=== PATIENT | female | born 1985 | race Two or more races ===

== ENCOUNTER 2020-03-31 22:24 | Emergency (ER) | payer OTHER ==
[~2020-03-31] VITALS: Ht 165.1 cm; Wt 72.6 kg
[2020-03-31 23:29] LABS: Basophils # (auto) 0.1 10 ^3/uL (0-0.2); Basophils % (auto) 0.6 % (0.0-2.0); Eosinophils # (auto) 0.2 10 ^3/uL (0-0.8); Eosinophils % (auto) 2.2 % (0.0-7.0); Hematocrit 38.8 % (36.0-46.0); Hemoglobin 13.4 g/dL (12.2-16.2); Lymphocytes # (auto) 2.3 10 ^3/uL (0.4-5.4); Lymphocytes % (auto) 23.8 % (10.0-50.0); Mean Corpuscular Hemoglobin 30.5 pg (28.0-32.0); Mean Corpuscular Hgb Conc. 34.6 g/dL (32.0-36.0); Mean Corpuscular Volume 88.3 fL (80.0-100.0); Monocytes # (auto) 0.5 10 ^3/uL (0-1.3); Monocytes % (auto) 5.4 % (0.0-12.0); Neutrophils # (auto) 6.5 10 ^3/uL (1.6-8.6); Platelet Count (auto) 269 10^3/uL (140-450); White Blood Cell 9.5 10^3/uL (4.4-10.8)
[2020-03-31 23:46] LABS: INR 0.97 (0.9-1.15); Partial Thromboplastin Time 27.3 sec (23.0-31.2)
[2020-03-31 23:48] LABS: Albumin 3.4 g/dL (3.4-5.0); Calcium 8.9 mg/dL (8.5-10.1); Potassium 3.4 mmol/L (3.5-5.1)
[2020-03-31 23:50] LABS: BUN/Creatinine Ratio 11.3
[2020-03-31 23:53] LABS: Bilirubin, Total 0.3 mg/dL (0.2-1.0); Total Protein 7.5 g/dL (6.4-8.2)
[2020-04-01 02:51] LABS: Urine Bacteria FEW /hpf (None Seen); Urine Blood 3+ /uL (Negative); Urine Mucus FEW (None Seen); Urine Specific Gravity 1.025 (1.001-1.035); Urine WBC 7 /hpf (0 - 5)
[2020-04-01 03:00] VITALS: BP 112/64
== END 2020-04-01 04:54 | disposition home or self-care (01) ==
LOC: EDBD 22:27 → ER 22:27
DX: O20.0 Threatened abortion (principal); Z3A.01 Less than 8 weeks gestation of pregnancy
CPT/HCPCS: 36415; 76801; 76817; 80053; 81001; 84702; 85025; 85610; 85730